=== PATIENT | female | born 1995 ===

== ENCOUNTER 2017-09-19 13:43 | Emergency (ER) | payer OTHER ==
[2017-09-19 14:00] VITALS: BP 114/65; PULSE 108; RESP 18; TEMP 97; O2SAT 98
--- NOTE | 2017-09-19 16:06 | ED PDOC ---
HPI: General Adult Time Seen by Provider: 09/19/17 13:59 Chief Complaint (Nursing): Anxiety Chief Complaint (Provider): Anxiety History Per: Patient History/Exam Limitations: no limitations Onset/Duration Of Symptoms: Mins Additional Complaint(s): 21 yo female with history of anxiety presents with anxiety and chest pain. PT states she was having allergies and took 25mg of benadryl, approx 2 minutes later she felt very anxious. Pt states on arrival she had chest pain which she contributes to the benadryl. Pt denies any current chest pain or anxiety. Past Medical History Reviewed: Historical Data, Nursing Documentation, Vital Signs Vital Signs: Last Vital Signs Temp 97 F L 09/19/17 13:57 Pulse 108 H 09/19/17 13:57 Resp 18 09/19/17 13:57 BP 114/65 09/19/17 13:57 Pulse Ox 98 09/19/17 13:57 - Medical History PMH: Anxiety - Surgical History Surgical History: No Surg Hx - Family History Family History: States: Unknown Family Hx - Living Arrangements Living Arrangements: With Family - Social History Current smoker - smoking cessation education provided: No Alcohol: None Drugs: Denies - Home Medications Home Medications: Ambulatory Orders Medication Instructions Recorded Famotidine [Pepcid] 20 mg PO BID #28 tab 09/01/15 Ondansetron [Zofran] 4 mg PO Q8H #9 tab 09/01/15 - Allergies Allergies/Adverse Reactions: Allergies Allergy/AdvReac Type Severity Reaction Status Date / Time No Known Allergies Allergy Verified 09/19/17 13:57 Review of Systems ROS Statement: Except As Marked, All Systems Reviewed And Found Negative Constitutional: Negative for: Fever, Chills Cardiovascular: Positive for: Chest Pain Respiratory: Negative for: Cough, Shortness of Breath Psych: Positive for: Anxiety Physical Exam - Reviewed Nursing Documentation Reviewed: Yes Vital Signs Reviewed: Yes - Physical Exam Appears: Positive for: Well, Non-toxic, No Acute Distress Head Exam: Positive for: ATRAUMATIC, NORMAL INSPECTION, NORMOCEPHALIC Skin: Positive for: Normal Color, Warm, DRY Eye Exam: Positive for: Normal appearance ENT: Positive for: Normal ENT Inspection Neck: Positive for: Normal, Painless ROM Cardiovascular/Chest: Positive for: Regular Rate, Rhythm Respiratory: Positive for: Normal Breath Sounds. Negative for: Accessory Muscle Use, Respiratory Distress Back: Positive for: Normal Inspection Extremity: Positive for: Normal ROM Neurologic/Psych: Positive for: Alert, Oriented - ECG O2 Sat by Pulse Oximetry: 98 Medical Decision Making Medical Decision Making: EKG - NSR Chest x-ray: No acute cardiopulmonary disease Disposition - Clinical Impression Clinical Impression: Anxiety - Patient ED Disposition Is Patient to be Admitted: No Counseled Patient/Family Regarding: Diagnosis, Need For Followup - Disposition Disposition: Routine/Home Disposition Time: 16:06 Condition: STABLE Instructions: Anxiety, Adult (DC)
--- NOTE | 2017-09-19 16:47 | RAD ---
HISTORY: Chest prain COMPARISON: No prior. FINDINGS: LUNGS: No active pulmonary disease. PLEURA: No significant pleural effusion identified, no pneumothorax apparent. CARDIOVASCULAR: Normal. OSSEOUS STRUCTURES: No significant abnormalities. VISUALIZED UPPER ABDOMEN: Normal. OTHER FINDINGS: None. IMPRESSION: No active disease.
== END 2017-09-19 16:21 | disposition home or self-care (01) ==
LOC: H.ER 13:43
DX: F41.9 Anxiety disorder, unspecified (principal); R07.89 Other chest pain

== ENCOUNTER 2017-10-01 22:49 | Emergency (ER) | payer OTHER ==
[2017-10-01 23:04] VITALS: O2SAT 99
[2017-10-01] MEDS ORDERED: Alum-Mag Hydrox-Simethicone Susp (30 mL) PO STA (23:24)
[2017-10-01] MEDS ORDERED: Alum-Mag Hydrox-Simethicone Susp (30 mL) ONE (23:31)
[2017-10-01 23:49] LABS: BASO # 0.1 K/uL (0.0-0.2); BASO % 0.5 % (0.0-2.0); EOS # 0.1 K/uL (0.0-0.7); EOS % 0.9 % (0.0-4.0); LYMPH # 1.1 K/uL (1.0-4.3); LYMPH % 9.2 % (20.0-40.0); MEAN CELL VOLUME 74.7 fl (81.0-99.0); MEAN CORPUSCULAR HEMOGLOBIN 24.5 pg (27.0-31.0); MEAN CORPUSCULAR HGB CONC 32.8 g/dL (33.0-37.0); MEAN PLATELET VOLUME 8.7 fl (7.2-11.7); MONO # 0.9 K/uL (0.0-0.8); MONO % 7.5 % (0.0-10.0); NEUT # 10.1 K/uL (1.8-7.0); NEUT % 81.9 % (50.0-75.0); PLATELET COUNT 283 K/uL (130-400); RBC 5.32 Mil/uL (3.80-5.20); RED CELL DISTRIBUTION WIDTH 16.1 % (11.5-14.5); WHITE BLOOD COUNT 12.3 K/uL (4.8-10.8)
[2017-10-01 23:57] LABS: ALB/GLOB RATIO 0.9 (1.0-2.1); ALBUMIN 4.4 g/dL (3.5-5.0); ALT/SGPT 43 U/L (9-52); AST/SGOT 24 U/L (14-36); BLOOD UREA NITROGEN 10 mg/dl (7-17); CALCIUM 9.6 mg/dL (8.4-10.2); GFR AFRICAN-AMERICAN > 60; GFR NON-AFRICAN AMERICAN > 60; LIPASE 70 U/L (23-300)
--- NOTE | 2017-10-02 00:13 | ED PDOC ---
HPI: Psych/Substance Abuse Time Seen by Provider: 10/01/17 22:57 Chief Complaint (Nursing): Psychiatric Evaluation Chief Complaint (Provider): Psychiatric Evaluation History/Exam Limitations: no limitations Additional Complaint(s): 22 years old female with history of anxiety disorder presents to the ED with complaints of anxiety associated with palpitations and epigastric pain that radiates to chest. Patient reports she has been unable to see her therapist recently. She denies any nausea, vomiting, or diarrhea. PMD: non provided Past Medical History Reviewed: Historical Data, Nursing Documentation, Vital Signs Vital Signs: Last Vital Signs Temp 97 F L 10/01/17 23:01 Pulse 101 H 10/01/17 23:01 Resp 22 10/01/17 23:01 BP 133/74 10/01/17 23:01 Pulse Ox 99 10/01/17 23:01 - Medical History PMH: Anxiety - Surgical History Surgical History: No Surg Hx - Family History Family History: States: Unknown Family Hx - Social History Current smoker - smoking cessation education provided: No Alcohol: None Drugs: Denies - Home Medications Home Medications: Ambulatory Orders Medication Instructions Recorded Famotidine [Pepcid] 20 mg PO BID #28 tab 09/01/15 Ondansetron [Zofran] 4 mg PO Q8H #9 tab 09/01/15 - Allergies Allergies/Adverse Reactions: Allergies Allergy/AdvReac Type Severity Reaction Status Date / Time No Known Allergies Allergy Verified 09/19/17 13:57 Review of Systems ROS Statement: Except As Marked, All Systems Reviewed And Found Negative Cardiovascular: Positive for: Palpitations Gastrointestinal: Positive for: Abdominal Pain (epigastric). Negative for: Nausea, Vomiting, Diarrhea Psych: Positive for: Anxiety Physical Exam - Reviewed Nursing Documentation Reviewed: Yes Vital Signs Reviewed: Yes - Physical Exam Appears: Positive for: Non-toxic, No Acute Distress Head Exam: Positive for: ATRAUMATIC, NORMOCEPHALIC Skin: Positive for: Normal Color, Warm, Dry Eye Exam: Positive for: Normal appearance, EOMI, PERRL ENT: Positive for: Normal ENT Inspection Neck: Positive for: Normal, Supple Cardiovascular/Chest: Positive for: Regular Rate, Rhythm. Negative for: Murmur Respiratory: Positive for: Normal Breath Sounds. Negative for: Respiratory Distress Gastrointestinal/Abdominal: Positive for: Normal Exam, Soft. Negative for: Tenderness Back: Positive for: Normal Inspection. Negative for: L CVA Tenderness, R CVA Tenderness Extremity: Positive for: Normal ROM. Negative for: Pedal Edema, Deformity Neurologic/Psych: Positive for: Alert, Oriented - Laboratory Results Result Diagrams: 10/01/17 23:46 10/01/17 23:46 - ECG O2 Sat by Pulse Oximetry: 99 (RA) Pulse Ox Interpretation: Normal Medical Decision Making Medical Decision Making: Time: 2322 Initial Impression: 22 years old female with acute panic and anxiety disorder. Initial Plan: --Lipase --Urine Drug Screen --Urine --Urine Dipstick --CBC --CMP --Famotidine 20 mg IV --Maalox Plus 30 ml --Crisis Evaluation ____ Time: 0129 Labs reviewed and show no significant abnormality. Patient reports improvement of symptoms and is cleared by crisis evaluation for discharge. [facility]. Scribe Attestation: Documented by Grisel Grove, acting as a scribe for Zachary Gomez MD. Provider Scribe Attestation: All medical record entries made by the Scribe were at my direction and personally dictated by me. I have reviewed the chart and agree that the record accurately reflects my personal performance of the history, physical exam, medical decision making, and the department course for this patient. I have also personally directed, reviewed, and agree with the discharge instructions and disposition. Disposition - Clinical Impression Clinical Impression: Anxiety - Disposition Disposition: Routine/Home Disposition Time: 01:29 Condition: STABLE Instructions: Anxiety, Adult (DC) Forms: [employer] (Hungarian)
[2017-10-02 00:24] LABS: BARBITURATES, UR NEGATIVE (NEGATIVE); BENZODIAZEPINES, UR NEGATIVE (NEGATIVE); OPIATES, UR NEGATIVE (NEGATIVE); PHENCYCLIDINE, UR NEGATIVE (NEGATIVE)
[2017-10-02 01:40] VITALS: BP 110/65; PULSE 85; RESP 18; TEMP 98.3
[2017-10-02 03:50] LABS: BANDS 2 % (0-2); LYMPHOCYTE 10 % (20-50); NEUTROPHIL 80 % (42-75); TOTAL CELLS COUNTED 100
[2017-10-02 03:51] LABS: EOSINOPHIL 1 % (0-7); MONOCYTE 7 % (0-10); PLATELET ESTIMATE NORMAL (NORMAL)
== END 2017-10-02 01:40 | disposition home or self-care (01) ==
LOC: H.ER 22:49
DX: F41.9 Anxiety disorder, unspecified (principal)

== ENCOUNTER 2017-10-07 13:11 | Emergency (ER) | payer OTHER, MEDICAID ==
[2017-10-07 13:24] VITALS: RESP 18; O2SAT 99
--- NOTE | 2017-10-07 13:50 | ED PDOC ---
HPI: SOB/CHF/COPD Chief Complaint (Provider): chest pain History Per: Patient History/Exam Limitations: no limitations Onset/Duration Of Symptoms: Days (1) Current Symptoms Are (Timing): Still Present Initiating Event: Upper Respiratory Illness (saw her PMD today, diagnosed with strep pharyngitis) Quality: Sharp (intermittent, last 2 seconds, resolves on its own) Exacerbating Factor(s): Other (pressing on chest) Current Respiratory Medications: None Severity: Moderate Pain Scale Rating Of: 6 Associated Symptoms: Sweating (of palms), Chest Pain (bilateral upper chest), Heart Racing, Anxiety, Tingling In Hands Or Face. denies: Fever, Chills, Productive Cough, Ankle/Leg Swelling, Dizziness, Light-headedness Similar Symptoms Previously: yes Recently: Treated By A Physician Additional History Per: Patient - Risk Factors PE Risk Factors: Neg: Extremity Immobilization/Fx, Decreased Mobilty /Activity, Recent Major Surgery, Recent Hospitalization, Active Cancer, Previous DVT, Previous PE, CHF, Venous Stasis, Estrogen Usage, , Post-, Recent Major Trauma <Jazmine Melissa - Last Filed: 10/07/17 14:44> <Jose Gore - Last Filed: 10/07/17 15:04> Time Seen by Provider: 10/07/17 13:23 Chief Complaint (Nursing): Shortness Of Breath Additional Complaint(s): 22 yr old F presents to ED with complaint of bilateral upper chest pain since last night. PMHx includes anxiety. Describes chest pain as sharp, 6/10, lasts 2 seconds, resolves on its own, exacerbated by pressing on her chest, not alleviated by anything. Did not take any medication yesterday or today. Associated symptoms are sore throat, bilateral upper arm, face and neck numbness and tingling, sweaty/clampy palms, "funny sensation in her right chest ", SOB last night which woke her up from her sleep. Denies upper or lower extremity arm weakness, denies hx of asthma, denies nausea/vomiting/diarrhea, dysuria, fever, chills, headaches, visual changes. Patient was seen by her PMD Dr. Estrella this AM and was diagnosed with strep pharyngitis, she has not picked up her antibiotics yet. She does not take any medication for her anxiety. Last meal was hollis/egg and cheese at 10am. LMP: 09/25/17, sexually active, not on control, inconsistent condom use PMD: Dr. Estrella ([facility]) -sees Mental Health Specialist at [facility] ( [place]) Medications: none Allergies: none (Jazmine Melissa) Supervising Attending Note <Jazmine Melissa - Last Filed: 10/07/17 14:44> - Supervising Attending Note The Documented history was done by the: Physician Formal Wear Rental Clerk The documented physical exam was done by the: Physician Formal Wear Rental Clerk The documented procedures were done by the: Physician Formal Wear Rental Clerk - Attestation: I have personally seen and examined this patient.: Yes I have fully participated in the care of the patient.: Yes I have reviewed all pertinent clinical information, including history, physical exam and plan: Yes <Jose Gore - Last Filed: 10/07/17 15:04> - Notes: Notes:: Chest pain (Jose Gore) Past Medical History - Medical History PMH: Anxiety Denies: Diabetes, Hepatitis, HIV, HTN, Seizures, Sexually Transmitted Disease - Surgical History Other surgeries: right bunionectomy - Family History Family History: States: Unknown Family Hx - Living Arrangements Living Arrangements: With Family - Social History Current smoker - smoking cessation education provided: No Ex-Smoker (has not smoked in the last 12 months): No Alcohol: None Drugs: Denies <Jazmine Melissa - Last Filed: 10/07/17 14:44> <Jose Gore - Last Filed: 10/07/17 15:04> Vital Signs: Last Vital Signs Temp 97.8 F 10/07/17 13:19 Pulse 78 10/07/17 13:19 Resp 18 10/07/17 13:19 BP 112/63 10/07/17 13:19 Pulse Ox 99 10/07/17 14:45 - Allergies Allergies/Adverse Reactions: Allergies Allergy/AdvReac Type Severity Reaction Status Date / Time No Known Allergies Allergy Verified 09/19/17 13:57 Curb-65 Severity Score - CURB-65 Severity Score Confusion: No Bun >19mg/dl (>7mmol/L): No Respiratory Rate greater than/equal to 30: No Systolic BP <90 or Diastolic BP less than/equal 60mmHg: No Age >64: No Curb-65 Score: 0 Percentage 30-day mortality: 0.6% <Jazmine Melissa - Last Filed: 10/07/17 14:44> Wells Criteria for PE - Wells Criteria for Pulmonary Embolism Clinical Signs and Symptoms of DVT: No P.E is #1 Diagnosis, or Equally Likely: No Heart Rate >100: No Immobilization at least 3 days;Surgery previous 4 weeks: No Previous, objectively diagnosed PE or DVT: No Hemoptysis: No Malignancy w/treatment within 6 months, or palliative: No Total Score: 0 <Jazmine Melissa - Last Filed: 10/07/17 14:44> Review of Systems Constitutional: Positive for: Sweats (in palms). Negative for: Fever, Chills, Weakness Eyes: Negative for: Vision Change ENT: Positive for: Throat Pain. Negative for: Ear Pain, Nose Discharge, Nose Congestion Cardiovascular: Positive for: Chest Pain. Negative for: Palpitations, Light Headedness Respiratory: Negative for: Cough, Shortness of Breath, Hemoptysis, Wheezing Gastrointestinal: Negative for: Nausea, Vomiting, Abdominal Pain, Diarrhea Genitourinary Female: Negative for: Dysuria, Frequency Musculoskeletal: Negative for: Neck Pain, Shoulder Pain, Arm Pain Skin: Negative for: Rash, Lesions Neurological: Positive for: Numbness (bilateral arms). Negative for: Weakness, Confusion, Dizziness Psych: Positive for: Anxiety <Jazmine Melissa - Last Filed: 10/07/17 14:44> Physical Exam - Physical Exam Appears: Positive for: No Acute Distress Head Exam: Positive for: ATRAUMATIC, NORMOCEPHALIC Skin: Positive for: Normal Color, Warm, Dry Eye Exam: Positive for: EOMI, PERRL ENT: Positive for: Pharyngeal Erythema, Tonsillar Swelling. Negative for: Nasal Congestion, Tonsillar Exudate Neck: Positive for: Painless ROM, Supple Cardiovascular/Chest: Positive for: Regular Rate, Rhythm, Other (bilateral upper chest pain tenderness to palpation). Negative for: Gallop, Murmur Respiratory: Positive for: Normal Breath Sounds. Negative for: Crackles, Rales , Rhonchi Pulses-Carotid (L): 2+ Pulses-Carotid (R): 2+ Pulses-Radial (L): 2+ Pulses-Radial (R): 2+ Gastrointestinal/Abdominal: Positive for: Bowel Sounds (normal), Soft. Negative for: Tenderness, Mass, Guarding Back: Positive for: Normal Inspection. Negative for: L CVA Tenderness, R CVA Tenderness Extremity: Positive for: Normal ROM. Negative for: Tenderness, Pedal Edema, Calf Tenderness, Swelling Neurologic/Psych: Positive for: Alert, corrosion technician II-XII (grossly intact), Oriented, Mood/Affect (normal/full range), Gait (normal). Negative for: Motor/Sensory Deficits <Jazmine Melissa - Last Filed: 10/07/17 14:44> - Physical Exam Cardiovascular/Chest: Positive for: Regular Rate, Rhythm, Chest Non Tender <Jose Gore - Last Filed: 10/07/17 15:04> - ECG O2 Sat by Pulse Oximetry: 99 <Jazmine Melissa - Last Filed: 10/07/17 14:44> - Laboratory Results Result Diagrams: 10/07/17 14:45 <Jose Gore - Last Filed: 10/07/17 15:04> - Progress ED Course And Treament: -EKG: -CBC w/diff: -CMP: -Upreg: -Udip: -CXR: no active disease -Toradol 15mg IV once ordered (Jazmine Melissa) 1503: Dr. Benjamin to take over care. Fu on labs and imaging. (Jose Gore) Disposition <Jazmine Melissa - Last Filed: 10/07/17 14:44> - Patient ED Disposition Is Patient to be Admitted: Transfer of Care - Disposition Disposition: Transfer of Care Disposition Time: 15:04 Patient Signed Over To: Shannan Benjamin <Jose Gore - Last Filed: 10/07/17 15:04> - Clinical Impression Clinical Impression: Chest pain - Disposition Condition: STABLE
--- NOTE | 2017-10-07 13:54 | RAD ---
HISTORY: chest pain, recent strep pharyngitis COMPARISON: Chest radiograph dated 09/19/2017 TECHNIQUE: Chest PA and lateral FINDINGS: LUNGS: No active pulmonary disease. PLEURA: No significant pleural effusion identified. No pneumothorax apparent. CARDIOVASCULAR: Normal. OSSEOUS STRUCTURES: No significant abnormalities. VISUALIZED UPPER ABDOMEN: Normal. OTHER FINDINGS: None. IMPRESSION: No active disease.
[2017-10-07] MEDS ORDERED: Sodium Chloride 0.9% 1,000 ML IV STA (14:21)
[2017-10-07 14:54] LABS: BASO # 0.1 K/uL (0.0-0.2); BASO % 0.8 % (0.0-2.0); EOS # 0.2 K/uL (0.0-0.7); EOS % 1.7 % (0.0-4.0); HEMOGLOBIN 12.7 g/dL (12.0-16.0); LYMPH # 1.7 K/uL (1.0-4.3); LYMPH % 18.7 % (20.0-40.0); MEAN CELL VOLUME 75.6 fl (81.0-99.0); MEAN CORPUSCULAR HEMOGLOBIN 25.1 pg (27.0-31.0); MEAN CORPUSCULAR HGB CONC 33.2 g/dL (33.0-37.0); MEAN PLATELET VOLUME 8.9 fl (7.2-11.7); MONO # 0.8 K/uL (0.0-0.8); MONO % 8.4 % (0.0-10.0); NEUT # 6.5 K/uL (1.8-7.0); NEUT % 70.4 % (50.0-75.0); NRBC % 0.1 % (0.0-0.0); RBC 5.07 Mil/uL (3.80-5.20); RED CELL DISTRIBUTION WIDTH 16.6 % (11.5-14.5); WHITE BLOOD COUNT 9.3 K/uL (4.8-10.8)
[2017-10-07 15:12] LABS: ALBUMIN 4.5 g/dL (3.5-5.0); ALT/SGPT 37 U/L (9-52); AST/SGOT 26 U/L (14-36); BLOOD UREA NITROGEN 10 mg/dl (7-17); CALCIUM 9.6 mg/dL (8.4-10.2); GFR AFRICAN-AMERICAN > 60; GFR NON-AFRICAN AMERICAN > 60
[2017-10-07 18:59] VITALS: BP 128/76; PULSE 76; TEMP 97.6
--- NOTE | 2017-10-08 07:17 | CARD ---
APPROVED REPORT EKG Measurement Heart [id number] <Conclusion> Normal sinus rhythm Normal ECG
== END 2017-10-07 19:01 | disposition home or self-care (01) ==
LOC: H.ER 13:11
DX: R07.89 Other chest pain (principal); J02.0 Streptococcal pharyngitis
CPT/HCPCS: 71046; 80053; 81025; 84484; 85025; 93005; 96374; 99284; J1885; J7040

== ENCOUNTER 2018-06-20 13:30 | Emergency (ER) | payer OTHER ==
[2018-06-20] MEDS ORDERED: Sodium Chloride 0.9% 1,000 ML IV STA (15:04)
--- NOTE | 2018-06-20 15:42 | ED PDOC ---
HPI: Headache Time Seen by Provider: 06/20/18 14:35 Chief Complaint (Nursing): Abdominal Pain History Per: Patient Additional Complaint(s): Pt. states yesterday she developed a R sided gradual onset headache. Reports she's had similar headache but usually occurs on the L side. States she did not take any medications yesterday or today to help with symptoms. Also reports this afternoon headache spread throughout her entire head. Also reports headache is associated with nausea and multiple episodes of vomiting. Further reports she has never sought medical attention for her headache until today. Also states that she never takes any medications to help with headache and she just takes a nap and symptoms resolve. Also reports having chills but no fever nor she take any meds to help with chills or take her temperature at home. Denies head injury, rash, cough, congestion, sore throat, LOC, N/V, abdominal pain. Past Medical History Reviewed: Historical Data, Nursing Documentation, Vital Signs Vital Signs: Last Vital Signs Temp 97.2 F L 06/20/18 13:36 Pulse 68 06/20/18 13:36 Resp 18 06/20/18 13:36 BP 109/71 06/20/18 13:36 Pulse Ox 100 06/20/18 13:36 - Medical History PMH: Anxiety Denies: Diabetes, Hepatitis, HIV, HTN, Seizures, Sexually Transmitted Disease - Family History Family History: States: No Known Family Hx - Home Medications Home Medications: Ambulatory Orders Medication Instructions Recorded Metoclopramide [Reglan] 10 mg PO TID PRN #10 tab 06/20/18 - Allergies Allergies/Adverse Reactions: Allergies Allergy/AdvReac Type Severity Reaction Status Date / Time No Known Allergies Allergy Verified 09/19/17 13:57 Review of Systems ROS Statement: Except As Marked, All Systems Reviewed And Found Negative Neurological: Positive for: Headache Physical Exam - Physical Exam Appears: Positive for: Well, Non-toxic, No Acute Distress Head Exam: Positive for: ATRAUMATIC, NORMAL INSPECTION, NORMOCEPHALIC Skin: Positive for: Normal Color, Warm. Negative for: Rash Eye Exam: Positive for: EOMI, Normal appearance, PERRL ENT: Positive for: Normal ENT Inspection Neck: Positive for: Normal, Painless ROM, Supple Gastrointestinal/Abdominal: Positive for: Soft. Negative for: Tenderness Neurologic/Psych: Positive for: Alert, Oriented (x3). Negative for: Aphasia, Facial Droop - Laboratory Results Result Diagrams: 06/20/18 15:34 06/20/18 15:34 - ECG O2 Sat by Pulse Oximetry: 100 - Progress ED Course And Treament: CT head w/o contrast, labs, reglan 10mg IVPB, IV NS bolus x 1 ordered. Re-evaluation Time: 18:04 (Seen eating. ) Condition: Re-examined, Improved Disposition - Clinical Impression Clinical Impression: Headache - Patient ED Disposition Is Patient to be Admitted: No - Disposition Referrals: Zohaib Gallegos MD [Medical Doctor] - Disposition: Routine/Home Disposition Time: 18:04 Condition: IMPROVED Additional Instructions: FOLLOW UP DR. GALLEGOS FOR FURTHER EVALUATION RETURN TO ED IMMEDIATELY IF SYMPTOMS WORSEN CARO VALENZUELA, thank you for letting us take care of you today. Your provider was Deepthi Koehler MD and you were treated for HEADACHE,FEVER. The emergency medical care you received today was directed at your acute symptoms. If you were prescribed any medication, please fill it and take as directed. It may take several days for your symptoms to resolve. Return to the Emergency Department if your symptoms worsen, do not improve, or if you have any other problems. Please contact your doctor or call one of the physicians/clinics you have been referred to that are listed on the Patient Visit Information form that is included in your discharge packet. Bring any paperwork you were given at d ischarge with you along with any medications you are taking to your follow up visit. Our treatment cannot replace ongoing medical care by a primary care provider outside of the emergency department. Thank you for allowing the [facility] team to be part of your care today. If you had an X-Ray or CT scan: A Radiologist will review the ED reading if any change in treatment is needed we will contact you. If you had a blood, urine, or wound culture: It will take several days for the results, if any change in treatment is needed we will contact you. If you had an STI test: It will take 48 hours for the results. Please call after 1 week if you have not heard back. Prescriptions: Metoclopramide [Reglan] 10 mg PO TID PRN #10 tab PRN Reason: headache or nausea Instructions: Headache, Adult (DC) Forms: [employer] (Burkinan) Print Language: COLOMBIAN
[2018-06-20 15:47] LABS: BASO % 0.5 % (0.0-2.0); EOS % 0.1 % (0.0-4.0); HEMOGLOBIN 11.4 g/dL (12.0-16.0); LYMPH # 0.9 K/uL (1.0-4.3); LYMPH % 10.8 % (20.0-40.0); MEAN CELL VOLUME 72.2 fl (81.0-99.0); MEAN CORPUSCULAR HEMOGLOBIN 22.8 pg (27.0-31.0); MEAN CORPUSCULAR HGB CONC 31.5 g/dL (33.0-37.0); MONO # 0.7 K/uL (0.0-0.8); NEUT # 6.8 K/uL (1.8-7.0); NEUT % 80.6 % (50.0-75.0); RED CELL DISTRIBUTION WIDTH 16.4 % (11.5-14.5); WHITE BLOOD COUNT 8.5 K/uL (4.8-10.8)
[2018-06-20 15:48] LABS: ALB/GLOB RATIO 1.1 (1.0-2.1); ALBUMIN 4.4 g/dL (3.5-5.0); ALT/SGPT 25 U/L (9-52); AST/SGOT 26 U/L (14-36); BLOOD UREA NITROGEN 8 mg/dl (7-17); CALCIUM 9.5 mg/dL (8.4-10.2); GFR NON-AFRICAN AMERICAN > 60
--- NOTE | 2018-06-20 16:39 | CT ---
Date of service: 06/20/2018 PROCEDURE: CT HEAD WITHOUT CONTRAST. HISTORY: headache COMPARISON: None available. TECHNIQUE: Axial computed tomography images were obtained through the head/brain without intravenous contrast. Radiation dose: Total exam DLP = 698.61 mGy-cm. This CT exam was performed using one or more of the following dose reduction techniques: Automated exposure control, adjustment of the mA and/or kV according to patient size, and/or use of iterative reconstruction technique. FINDINGS: HEMORRHAGE: No intracranial hemorrhage. BRAIN: No mass effect or edema. No atrophy or chronic microvascular ischemic changes. VENTRICLES: Unremarkable. No hydrocephalus. CALVARIUM: Unremarkable. PARANASAL SINUSES: Unremarkable as visualized. No significant inflammatory changes. MASTOID AIR CELLS: Unremarkable as visualized. No inflammatory changes. OTHER FINDINGS: None. IMPRESSION: Normal CT of the Head.
[2018-06-20 18:06] VITALS: O2SAT 100
[2018-06-20 18:35] VITALS: BP 103/61; PULSE 76; RESP 18; TEMP 98.4
== END 2018-06-20 18:33 | disposition home or self-care (01) ==
LOC: H.ER 13:30
DX: R51 Headache (principal)
CPT/HCPCS: 70450; 80053; 81025; 85025; 96361; 96374; 99284; J2765; J7030

== ENCOUNTER 2018-06-27 03:10 | Emergency (ER) | payer OTHER ==
[2018-06-27 03:24] VITALS: RESP 16
[2018-06-27] MEDS ORDERED: Alum-Mag Hydrox-Simethicone Susp (30 mL) PO ONE (03:49)
[2018-06-27] MEDS ORDERED: Alum-Mag Hydrox-Simethicone Susp (30 mL) ONE (03:57)
--- NOTE | 2018-06-27 04:16 | ED PDOC ---
HPI: Abdomen Time Seen by Provider: 06/27/18 03:34 Chief Complaint (Nursing): Abdominal Pain Chief Complaint (Provider): Abdominal Pain History Per: Patient History/Exam Limitations: no limitations Onset/Duration Of Symptoms: Hrs (x1) Additional Complaint(s): 22 y/o female presents to the ED and states that just x1 hour prior to arrival she developed epigastric pain with radiation to her back. Patient states pain is consistent with her "acid reflux" except for the fact that the pain radiates to her back. Patient states she takes lansoprazole daily. She further states that when she lies supine she develops shortness of breath but that when she sits upright shortness of breath resolves but abdominal pain persists. Patient's last bowel movement was yesterday which was normal. She denies vomiting diarrhea, chest pain palpitations, history of DVT or PE, oral contraceptive use, melena, rectal bleeding, or prolonged immobilization of limbs. Past Medical History Reviewed: Historical Data, Nursing Documentation, Vital Signs Vital Signs: Last Vital Signs Temp 97.7 F 06/27/18 03:19 Pulse 68 06/27/18 03:19 Resp 16 06/27/18 03:19 BP 113/75 06/27/18 03:19 Pulse Ox 98 06/27/18 03:19 - Medical History PMH: Anxiety Denies: Diabetes, Hepatitis, HIV, HTN, Seizures, Sexually Transmitted Disease - Family History Family History: States: Unknown Family Hx Denies: Other Other Family History: Denies family history of thromboembolic disease - Home Medications Home Medications: Ambulatory Orders Medication Instructions Recorded Metoclopramide [Reglan] 10 mg PO TID PRN #10 tab 06/20/18 Famotidine [Pepcid] 20 mg PO DAILY PRN #7 tab 06/27/18 - Allergies Allergies/Adverse Reactions: Allergies Allergy/AdvReac Type Severity Reaction Status Date / Time No Known Allergies Allergy Verified 09/19/17 13:57 Review of Systems ROS Statement: Except As Marked, All Systems Reviewed And Found Negative Gastrointestinal: Positive for: Abdominal Pain. Negative for: Nausea, Vomiting, Diarrhea, Melena, Hematochezia, Rectal Pain Physical Exam - Reviewed Nursing Documentation Reviewed: Yes Vital Signs Reviewed: Yes - Physical Exam Appears: Positive for: No Acute Distress (smiling and happy) Skin: Positive for: Normal Color, Warm, DRY Eye Exam: Positive for: Normal appearance. Negative for: Scleral icterus Neck: Positive for: Normal, Painless ROM, Supple Cardiovascular/Chest: Positive for: Regular Rate, Rhythm. Negative for: JVD, Murmur Respiratory: Positive for: Normal Breath Sounds. Negative for: Respiratory Distress Gastrointestinal/Abdominal: Positive for: Normal Exam, Soft, Other (negative Georges's ). Negative for: Tenderness, Organomegaly Back: Positive for: Normal Inspection. Negative for: L CVA Tenderness, R CVA Tenderness, Vertebral Tenderness Extremity: Negative for: Calf Tenderness (or swelling b/l) Neurologic/Psych: Positive for: Alert, Oriented (x3). Negative for: Motor/Sensory Deficits - Laboratory Results Result Diagrams: 06/27/18 04:12 06/27/18 04:12 - ECG ECG: Positive for: Interpreted By Me ECG Rhythm: Positive for: Sinus Rhythm. Negative for: ST/T Changes Rate: 74 O2 Sat by Pulse Oximetry: 98 (RA) Pulse Ox Interpretation: Normal - Radiology X-Ray: Interpreted by Me (CXR) X-Ray Interpretation: No Acute Disease (no cardiomegaly or CHF) Medical Decision Making Medical Decision Making: Time: 03:49 Initial Impression: abdominal pain Initial Plan: EKG CMP Lipase CBC w/ diff CXR Maalox 30 ml Pepcid 20 mg 0450 On re-evaluation, pt. sleeping comfortably. Lying supine. Arousable to non- painful tactile stimuli. Pt. states pain has resolved and has not had any shortness of breath while in the ED. Informed of results including slightly decreased HgB. Denies rectal bleeding, melena, hemaotchezia, vaginal bleeding, h x of previous blood transfusions. Advised to f/u with PMD for further evaluation but is to return to ED immediately if symptoms worsen. Pt. verbalized correct understanding of necessary f/u and care to provider. Scribe Attestation: Documented by Luan Cruz acting as a scribe for Dale Larsen PA-C. Provider Scribe Attestation: All medical record entries made by the Scribe were at my direction and personally dictated by me. I have reviewed the chart and agree that the record accurately reflects my personal performance of the history, physical exam, medical decision making, and the department course for this patient. I have also personally directed, reviewed, and agree with the discharge instructions and disposition. Disposition - Clinical Impression Clinical Impression: Dyspepsia, Mild anemia - Patient ED Disposition Is Patient to be Admitted: No - Disposition Referrals: [facility] [Outside] Disposition: Routine/Home Disposition Time: 04:58 Condition: IMPROVED Additional Instructions: FOLLOW UP WITH YOUR DOCTOR FOR FURTHER EVALUATION RETURN TO ED IMMEDIATELY IF SYMPTOMS WORSEN CARO VALENZUELA, thank you for letting us take care of you today. Your provider was Shannan Benjamin MD and you were treated for ABD PAIN,DIFFIFULTY BREATHING. The emergency medical care you received today was directed at your acute symptoms. If you were prescribed any medication, please fill it and take as directed. It may take several days for your symptoms to resolve. Return to the Emergency Department if your symptoms worsen, do not improve, or if you have any other problems. Please contact your doctor or call one of the physicians/clinics you have been referred to that are listed on the Patient Visit Information form that is included in your discharge packet. Bring any paperwork you were given at discharge with you along with any medications you are taking to your follow up visit. Our treatment cannot replace ongoing medical care by a primary care provider outside of the emergency department. Thank you for allowing the [facility] team to be part of your care today. If you had an X-Ray or CT scan: A Radiologist will review the ED reading if any change in treatment is needed we will contact you. If you had a blood, urine, or wound culture: It will take several days for the results, if any change in treatment is needed we will contact you. If you had an STI test: It will take 48 hours for the results. Please call after 1 week if you have not heard back. Prescriptions: Famotidine [Pepcid] 20 mg PO DAILY PRN #7 tab PRN Reason: Dyspepsia Instructions: Dyspepsia (DC) Forms: Ratio (Thai) Wells Criteria for PE - Wells Criteria for Pulmonary Embolism Clinical Signs and Symptoms of DVT: No P.E is #1 Diagnosis, or Equally Likely: No Heart Rate >100: No Immobilization at least 3 days;Surgery previous 4 weeks: No Previous, objectively diagnosed PE or DVT: No Hemoptysis: No Malignancy w/treatment within 6 months, or palliative: No Total Score: 0
[2018-06-27 04:26] LABS: BASO # 0.1 K/uL (0.0-0.2); BASO % 0.8 % (0.0-2.0); EOS % 0.6 % (0.0-4.0); HEMOGLOBIN 10.4 g/dL (12.0-16.0); LYMPH # 1.7 K/uL (1.0-4.3); LYMPH % 22.2 % (20.0-40.0); MEAN CELL VOLUME 72.6 fl (81.0-99.0); MEAN CORPUSCULAR HEMOGLOBIN 23.3 pg (27.0-31.0); MEAN CORPUSCULAR HGB CONC 32.1 g/dL (33.0-37.0); MEAN PLATELET VOLUME 9.2 fl (7.2-11.7); MONO # 0.8 K/uL (0.0-0.8); MONO % 11.2 % (0.0-10.0); NEUT # 4.9 K/uL (1.8-7.0); NEUT % 65.2 % (50.0-75.0); RBC 4.48 Mil/uL (3.80-5.20); RED CELL DISTRIBUTION WIDTH 16.3 % (11.5-14.5); WHITE BLOOD COUNT 7.5 K/uL (4.8-10.8)
[2018-06-27 04:31] LABS: ALB/GLOB RATIO 1.1 (1.0-2.1); ALBUMIN 4.1 g/dL (3.5-5.0); ALT/SGPT 30 U/L (9-52); AST/SGOT 28 U/L (14-36); BLOOD UREA NITROGEN 14 mg/dl (7-17); CALCIUM 9.2 mg/dL (8.4-10.2); GFR NON-AFRICAN AMERICAN > 60; LIPASE 95 U/L (23-300)
[2018-06-27 05:16] VITALS: BP 104/60; PULSE 69; TEMP 98.1; O2SAT 95
--- NOTE | 2018-06-27 09:02 | CARD ---
APPROVED REPORT Date of service: 06/27/2018 EKG Measurement Heart [id number] <Conclusion> Normal sinus rhythm with sinus arrhythmia Normal Electrocardiogram
--- NOTE | 2018-06-27 10:01 | RAD ---
Date of service: 06/27/2018 HISTORY: Abdominal pain COMPARISON: 10/07/2017. FINDINGS: LUNGS: The lungs are well inflated and clear. PLEURA: No pleural effusions or pneumothorax. CARDIOVASCULAR: The heart is normal in size. No aortic atherosclerotic calcifications present. OSSEOUS STRUCTURES: Within normal limits for the patient's age. VISUALIZED UPPER ABDOMEN: Normal. OTHER FINDINGS: None. IMPRESSION: No active pulmonary disease.
== END 2018-06-27 05:15 | disposition home or self-care (01) ==
LOC: H.ER 03:10
DX: R10.30 Lower abdominal pain, unspecified (principal); D64.9 Anemia, unspecified; F41.9 Anxiety disorder, unspecified